=== PATIENT | female | born 1990 | race Caucasian/White ===

== ENCOUNTER 2018-02-20 05:35 | Emergency (ER) | payer MEDICAID ==
[~2018-02-20] VITALS: Ht 167.6 cm; Wt 80.1 kg
[2018-02-20] MEDS ORDERED: MAALOX/HYOSCYAMINE/LIDOCAINE 45 ML BTL ONE (05:49)
[2018-02-20] MEDS ORDERED: BIRTH CONTROL (05:51)
[2018-02-20] MEDS ORDERED: FAMOTIDINE 20 MG TABLET ONE (05:52)
[2018-02-20] MEDS ORDERED: MAALOX/HYOSCYAMINE/LIDOCAINE 45 ML BTL PO ONE (06:00)
[2018-02-20] MEDS ORDERED: FAMOTIDINE 20 MG TABLET PO ONE (06:00)
[2018-02-20 06:23] LABS: BASOPHILS # (AUTO) 0.04 x10^3/uL (0-0.1); BASOPHILS % (AUTO) 1 % (0-1); EOSINOPHILS % (AUTO) 5 % (1-7); LYMPHOCYTES # (AUTO) 1.82 x10^3/uL (1-3.4); LYMPHOCYTES % (AUTO) 29 % (22-44); MD NO; MEAN CORPUSCULAR HEMOGLOBIN 32.4 pg (27.0-34.8); MEAN CORPUSCULAR HGB CONC 34.9 g/dL (32.4-35.8); MEAN CORPUSCULAR VOLUME 93.1 fL (80-100); MONOCYTES # (AUTO) 0.42 x10^3/uL (0.2-0.8); MONOCYTES % (AUTO) 7 % (2-9); NEUTROPHILS # (AUTO) 3.61 x10^3/uL (1.8-6.8); NEUTROPHILS % (AUTO) 58 % (42-75); PLATELET COUNT 253 x10^3/uL (130-400); RED BLOOD COUNT 4.32 x10^6/uL (3.82-5.3); RED CELL DISTRIBUTION WIDTH 13.8 % (9.6-15.2)
[2018-02-20 06:33] LABS: ALBUMIN 3.5 g/dL (3.4-5.0); ANION GAP 9 mmol/L (5-15); CALCIUM 8.4 mg/dL (8.5-10.1); CHLORIDE 111 mmol/L (98-107)
[2018-02-20 06:39] LABS: ALANINE AMINOTRANSFERASE 25 U/L (12-78); ALKALINE PHOSPHATASE 84 U/L (45-117); BILIRUBIN,TOTAL 0.4 mg/dL (0.2-1.0); CREATININE 0.68 mg/dL (0.55-1.02); TOTAL PROTEIN 6.8 g/dL (6.4-8.2)
[2018-02-20 06:51] VITALS: BP 119/78
== END 2018-02-20 06:52 | disposition home or self-care (01) ==
LOC: ED 06:46
DX: K21.0 Gastro-esophageal reflux disease with esophagitis (principal); Z87.891 Personal history of nicotine dependence
CPT/HCPCS: 36415; 71045; 80053; 83690; 84703; 85025; 93005; 99285

== ENCOUNTER 2018-08-10 19:23 | Emergency (ER) | payer MEDICAID ==
[~2018-08-10] VITALS: Ht 165.1 cm; Wt 78.7 kg
[~2018-08-10 19:23] MED LIST: BIRTH CONTROL
[2018-08-10 19:35] VITALS: BP 116/76
[2018-08-10 20:56] LABS: RAPID INFLUENZA A POSITIVE (Negative); RAPID INFLUENZA B Negative (Negative)
[2018-08-10] MEDS ORDERED: OSELTAMIVIR 75 MG CAPSULE PO ONE (21:30)
== END 2018-08-10 21:40 | disposition home or self-care (01) ==
LOC: ED 21:34
DX: J10.1 Influenza due to other identified influenza virus with other respiratory manifestations (principal); B34.9 Viral infection, unspecified; K21.9 Gastro-esophageal reflux disease without esophagitis
CPT/HCPCS: 71046; 87400; 99284; J7512

== ENCOUNTER 2020-01-09 14:45 | Emergency (ER) | payer OTHER ==
[~2020-01-09] VITALS: Ht 165.1 cm; Wt 81.7 kg
--- NOTE | 2020-01-09 15:50 | NUR ---
[employer] REPRESENTATIVE: PT TO ROOM FROM E[facility] GAO.
[2020-01-09] MEDS ORDERED: MAALOX/HYOSCYAMINE/LIDOCAINE 45 ML BTL ONE (16:17)
[2020-01-09] MEDS ORDERED: MAALOX/HYOSCYAMINE/LIDOCAINE 45 ML BTL PO ONE (16:30)
[2020-01-09 16:34] LABS: BASOPHILS # (AUTO) 0.08 x10^3/uL (0-0.1); BASOPHILS % (AUTO) 1 % (0-1); EOSINOPHILS # (AUTO) 0.42 x10^3/uL (0-0.4); EOSINOPHILS % (AUTO) 6 % (1-7); LYMPHOCYTES # (AUTO) 1.86 x10^3/uL (1-3.4); LYMPHOCYTES % (AUTO) 25 % (22-44); MD NO; MEAN CORPUSCULAR HEMOGLOBIN 30.6 pg (27.0-34.8); MEAN CORPUSCULAR HGB CONC 33.9 g/dL (32.4-35.8); MEAN CORPUSCULAR VOLUME 90.2 fL (80-100); MEAN PLATELET VOLUME 8.6 fL (7.4-10.4); MONOCYTES % (AUTO) 8 % (2-9); NEUTROPHILS # (AUTO) 4.52 x10^3/uL (1.8-6.8); NEUTROPHILS % (AUTO) 60 % (42-75); PLATELET COUNT 340 x10^3/uL (130-400); RED BLOOD COUNT 4.99 x10^6/uL (3.82-5.3); RED CELL DISTRIBUTION WIDTH 13.3 % (9.6-15.2)
[2020-01-09 16:43] LABS: ALANINE AMINOTRANSFERASE 27 U/L (12-78); ALBUMIN 3.8 g/dL (3.4-5.0); ANION GAP 7 mmol/L (5-15); CALCIUM 8.9 mg/dL (8.5-10.1); CHLORIDE 109 mmol/L (98-107); CREATININE 0.85 mg/dL (0.55-1.02)
[2020-01-09 16:48] LABS: ALKALINE PHOSPHATASE 87 U/L (45-117); BILIRUBIN,TOTAL 0.4 mg/dL (0.2-1.0); TOTAL PROTEIN 7.8 g/dL (6.4-8.2)
[2020-01-09 17:52] VITALS: BP 108/60
--- NOTE | 2020-01-09 17:53 | NUR ---
TASK RN: PT REPORTS IMPROVED PAIN WITH MEDICATIONS. DC EDUCATION PROVIDED, PT DEMONSTRATES UNDERSTANDING. PT AMBULATED STEADILY TO DC W RN
== END 2020-01-09 17:55 | disposition home or self-care (01) ==
LOC: ED 17:25
DX: K21.0 Gastro-esophageal reflux disease with esophagitis (principal)
CPT/HCPCS: 36415; 80053; 83690; 84703; 85025; 93005; 99283; 99284

== ENCOUNTER 2020-03-13 05:32 | Emergency (ER) | payer MEDICAID, OTHER ==
[~2020-03-13] VITALS: Ht 165.1 cm; Wt 88.3 kg
--- NOTE | 2020-03-13 05:43 | NUR ---
FIRST PT CONTACT: PT STATES SHE CAME IN FOR ABDOMINAL PAIN THAT BEGAN ABOUT A FEW DAYS AGO, AND HAS BEEN WAKING UP EXTRA EARLY DUE TO DISCOMFORT. PT STATES "I AM CONCERNED I OVER DID IT BECAUSE I CHANGED MY WORKOUT ROUTINE". PT STATES SHE WAS BEDRIDDEN ONE DAY AFTER CHANGING WORKOUT ROUTINE. PT STATES HISTORY OF PCOS. PT VSS, NAD. DENIES CHANGES IN GI/. RECENT BM. PT AMBULATED TO AND FROM RESTROOM WITH A SMOOTH AND STEADY GAIT. UA OBTAINED AND WALKED TO LAB. ELSY MED STUDENT AT . PT PALCED ON SPO2/BP MONITORING
--- NOTE | 2020-03-13 06:05 | NUR ---
pt resting on gurney, given warm blankets for comfort, no other changes in condition, NAD, UA tubed to lab, VSS. WCTM.
[2020-03-13] MEDS ORDERED: OMEP40CA42 PO (06:09)
[2020-03-13] MEDS ORDERED: ALBU8.5H8 INH (06:09)
[2020-03-13 06:32] VITALS: BP 129/78
--- NOTE | 2020-03-13 06:33 | NUR ---
PT RESTING ON GURNEY, UPDATED ON POC, PT NAD, VSS, NO ACUTE CHANGES IN CONDITION, DENIES ADDITIONAL NEEDS, CALL LIGHT ON LAP, WCTM.
[2020-03-13 06:37] LABS: HCG UR SG 1.037 (1.003-1.030)
[2020-03-13 06:40] LABS: MICROSCOPIC INDICATED
--- NOTE | 2020-03-13 07:00 | NUR ---
REPORT FROM MCKAYLA RANGEL
--- NOTE | 2020-03-13 07:00 | NUR ---
late entry: BS report to Puneet JOHNSON. pt care transferred at this time.
--- NOTE | 2020-03-13 08:03 | NUR ---
Patient/Caregiver given discharge instructions and they have confirmed that they understand the instructions. Patient ambulatory with steady gait.
== END 2020-03-13 08:04 | disposition home or self-care (01) ==
LOC: ED 06:21
DX: R10.32 Left lower quadrant pain (principal); R10.31 Right lower quadrant pain; R11.2 Nausea with vomiting, unspecified; K21.9 Gastro-esophageal reflux disease without esophagitis; Z90.49 Acquired absence of other specified parts of digestive tract
CPT/HCPCS: 76830; 81001; 81025; 87086; 99284